=== PATIENT | male | born 1960 | race Caucasian/White ===

== ENCOUNTER 2024-04-29 16:12 | Inpatient (IN) | payer MEDICAID ==
[~2024-04-29] VITALS: Ht 167.6 cm; Wt 71.2 kg
[2024-04-29 17:29] LABS: HEMATOCRIT. 49.5 % (42.0-52.0); HEMOGLOBIN. 16.9 g/dL (14.0-18.0); MEAN CORPUSCULAR HEMOGLOBIN 29.7 pg (28.0-32.0); MEAN CORPUSCULAR HGB CONC 34.3 g/dL (31.0-37.0); MEAN CORPUSCULAR VOLUME 86.8 fL (80.0-94.0); MEAN PLATELET VOLUME 7.4 fl (7.4-10.4); PLATELET 350 x1000/uL (130-400); RED CELL DISTRIBUTION WIDTH 14.3 % (11.6-14.6); WHITE BLOOD COUNT 7.1 x1000/uL (4.5-11.0)
[2024-04-29 17:32] LABS: DIFFERENTIAL COMMENT 1
[2024-04-29 17:33] LABS: CHLORIDE 71 mEq/L (98-107); POTASSIUM 2.9 mEq/L (3.5-5.1); SODIUM 130 mEq/L (136-145)
[2024-04-29 17:34] LABS: CALCIUM 11.2 mg/dL (8.7-10.4)
[2024-04-29 17:39] LABS: CREATININE 2.5 mg/dL (0.6-1.3); GLUCOSE 170 mg/dL (70-105); UREA NITROGEN BLOOD 29 mg/dL (9-23)
[2024-04-29 17:41] LABS: ALANINE AMINOTRANSFERASE 15 IU/L (10-49); ALBUMIN 4.9 g/dL (3.2-4.8); ASPARTATE AMINOTRANSFERASE 25 IU/L (<34); BILIRUBIN DIRECT 0.3 mg/dL (<=3.0); PROTEIN TOTAL 7.9 g/dL (6.0-8.3)
[2024-04-29 17:44] LABS: CARBON DIOXIDE > 40 mEq/L (21-32)
[2024-04-29 17:45] LABS: ETHANOL BLOOD < 10 mg/dL (<10)
[2024-04-29 18:07] LABS: PLATELET ESTIMATE NORMAL
[2024-04-29] MEDS: KCL 20MEQ/100ML PREMIX 100 ML IV SCH (20:00)
[2024-04-29] MEDS ORDERED: MORPHINE SULFATE 4 MG/ML INJ (FOR IV/IM USE) IV ONE (20:00)
[2024-04-29] MEDS ORDERED: ONDANSETRON HCL 4MG/2ML INJ IV ONE (20:00)
[2024-04-29] MEDS ORDERED: DEXTROSE 50% WATER 50ML SYRINGE IV PRN (21:45)
[2024-04-29] MEDS ORDERED: GUAIFENESIN 200MG/10ML SUGAR FREE UDC PO PRN (21:45)
[2024-04-29 22:08] LABS: LACTIC ACID 3.9 mmol/L (0.4-2.0)
[2024-04-29 22:24] LABS: TROPONIN I HIGH SENSITIVITY 16 ng/L (3.0-53)
[2024-04-29 22:25] LABS: CREATINE KINASE 31 IU/L (46-171)
[2024-04-29] MEDS: SODIUM CHLORIDE 0.9% 1,000 ML IV ONE (22:44)
[2024-04-29] MEDS: PIPERACILLIN/TAZO 3.375G/50ML 50 ML IV SCH (22:49)
[2024-04-29] MEDS: MORPHINE SULFATE 4 MG/ML INJ (FOR IV/IM USE) IV NR (22:50)
[2024-04-29] MEDS: ONDANSETRON HCL 4MG/2ML INJ IV NR (22:50)
[2024-04-29] MEDS: IPRATROPIUM/ALBUTEROL 0.5-3(2.5)MG/3ML NEB HHN PRN (23:01)
[2024-04-29] MEDS: DEXT 5%/0.9% NACL 1,000 ML IV SCH (23:06)
[2024-04-30 00:31] VITALS: BP 102/70; PULSE 104; RESP 20; TEMP 36.696
[2024-04-30] MEDS: KCL 20MEQ/100ML PREMIX 100 ML IV SCH (01:30)
[2024-04-30 04:00] VITALS: BP 114/67; PULSE 101; RESP 20; TEMP 36.61404; O2SAT 95
[2024-04-30 06:42] LABS: CHLORIDE 80 mEq/L (98-107); SODIUM 132 mEq/L (136-145)
[2024-04-30 06:45] LABS: CALCIUM 9.8 mg/dL (8.7-10.4)
[2024-04-30 06:49] LABS: CREATININE 2.3 mg/dL (0.6-1.3); GLUCOSE 145 mg/dL (70-105); TRIGLYCERIDE 116 mg/dL (0-150)
[2024-04-30 06:50] LABS: LDL CHOLESTEROL 55 mg/dL (5-100); UREA NITROGEN BLOOD 36 mg/dL (9-23)
[2024-04-30 06:51] LABS: ALANINE AMINOTRANSFERASE 12 IU/L (10-49); ALBUMIN 3.9 g/dL (3.2-4.8); ASPARTATE AMINOTRANSFERASE 20 IU/L (<34); CHOLESTEROL 124 mg/dL (<200); CREATINE KINASE 25 IU/L (46-171); HDL CHOLESTEROL 52 mg/dL (>55); TROPONIN I HIGH SENSITIVITY 14 ng/L (3.0-53)
[2024-04-30 06:52] LABS: BILIRUBIN TOTAL 0.8 mg/dL (0.1-1.0); PROTEIN TOTAL 6.4 g/dL (6.0-8.3)
[2024-04-30 06:55] LABS: T4 FREE 1.34 ng/dL (0.89-1.76); THYROID STIMULATING HORMONE 0.59 uIU/mL (0.55-4.78)
[2024-04-30 07:05] LABS: HEMATOCRIT. 43.6 % (42.0-52.0); HEMOGLOBIN. 14.7 g/dL (14.0-18.0); MEAN CORPUSCULAR HEMOGLOBIN 29.6 pg (28.0-32.0); MEAN CORPUSCULAR HGB CONC 33.7 g/dL (31.0-37.0); MEAN CORPUSCULAR VOLUME 87.9 fL (80.0-94.0); MEAN PLATELET VOLUME 7.9 fl (7.4-10.4); PLATELET 291 x1000/uL (130-400); RED BLOOD CELL COUNT 4.97 mill/uL (4.7-6.1); RED CELL DISTRIBUTION WIDTH 14.3 % (11.6-14.6)
[2024-04-30 07:29] LABS: DIFFERENTIAL COMMENT 1
[2024-04-30] MEDS ORDERED: POTASSIUM CHLORIDE 40 MEQ in DEXT 5% WATER 230 ML IV ONE (07:45)
[2024-04-30 07:57] LABS: POTASSIUM 2.6 mEq/L (3.5-5.1)
[2024-04-30 07:58] LABS: CARBON DIOXIDE > 40 mEq/L (21-32)
[2024-04-30 08:00] VITALS: BP 107/60; PULSE 90; RESP 20; TEMP 36.33624; O2SAT 98
[2024-04-30] MEDS ORDERED: NALOXONE HCL 0.4MG/ML VIAL IV PRN (08:00)
[2024-04-30] MEDS: [UNRECOGNIZED DRUG - OTHER] IV SCH ×2 (10:02→12:57)
[2024-04-30] MEDS: PIPERACILLIN/TAZO 3.375G/50ML 50 ML IV SCH ×2 (10:03→14:00)
[2024-04-30] MEDS: PANTOPRAZOLE SODIUM 40 MG/VIAL IV SCH ×2 (10:04→21:08)
[2024-04-30 12:00] VITALS: BP 110/74; PULSE 98; RESP 20; TEMP 36.16956; O2SAT 99
[2024-04-30 12:31] LABS: PLATELET ESTIMATE NORMAL
[2024-04-30] MEDS: BLOOD SUGAR DIAGNOSTIC STRIP TEST SCH (12:40)
[2024-04-30] MEDS: INSULIN LISPRO 100 UNITS/ML SUBCUT SCH (13:15)
[2024-04-30 20:00] VITALS: BP 107/63; PULSE 83; RESP 20; TEMP 37.7808; O2SAT 97
[2024-04-30] MEDS: MORPHINE SULFATE 2 MG/ML INJ (NOT FOR IM USE) IV PRN (21:11)
[2024-04-30 21:24] LABS: POTASSIUM 3.2 mEq/L (3.5-5.1)
[2024-04-30] MEDS: MORPHINE SULFATE 2 MG/ML INJ (NOT FOR IM USE) IV NR (23:23)
[2024-05-01] VITALS: BP 124/63; PULSE 111; RESP 18; TEMP 38.3364; O2SAT 96
[2024-05-01 04:00] VITALS: BP 107/64; PULSE 108; RESP 18; TEMP 37.72524; O2SAT 98
[2024-05-01 07:05] LABS: CALCIUM 9.9 mg/dL (8.7-10.4); CHLORIDE 91 mEq/L (98-107); SODIUM 137 mEq/L (136-145)
[2024-05-01 07:06] LABS: CARBON DIOXIDE 39 mEq/L (21-32)
[2024-05-01 07:11] LABS: CREATININE 1.8 mg/dL (0.6-1.3); GLUCOSE 103 mg/dL (70-105); UREA NITROGEN BLOOD 39 mg/dL (9-23)
[2024-05-01 07:14] LABS: PHOSPHORUS 4.2 mg/dL (2.5-4.9)
[2024-05-01 08:00] VITALS: BP 103/62; PULSE 105; RESP 18; TEMP 37.2252; O2SAT 97
[2024-05-01] MEDS: KCL 20MEQ/100ML PREMIX 100 ML IV NR (09:18)
[2024-05-01] MEDS: KCL 20MEQ/100ML PREMIX 100 ML IV SCH (11:37)
[2024-05-01 12:00] VITALS: BP 101/61; PULSE 102; RESP 18; TEMP 36.78072; O2SAT 98
[2024-05-01 16:00] VITALS: BP 107/66; PULSE 101; RESP 18; TEMP 37.00296; O2SAT 99
[2024-05-01] MEDS: THIAMINE HCL 200 MG in SODIUM CHLORIDE 0.9% 98 ML IV SCH (18:10)
[2024-05-01 20:00] VITALS: BP 105/70; PULSE 111; RESP 20; TEMP 36.50292; O2SAT 97
[2024-05-02 00:27] VITALS: BP 125/72; PULSE 101; RESP 20; TEMP 36.72516; O2SAT 98
[2024-05-02 04:00] VITALS: BP 102/62; PULSE 97; RESP 20; TEMP 36.61404; O2SAT 97
[2024-05-02 07:08] LABS: CALCIUM 9.8 mg/dL (8.7-10.4)
[2024-05-02 07:13] LABS: CREATININE 1.9 mg/dL (0.6-1.3)
[2024-05-02 07:17] LABS: PHOSPHORUS 3.2 mg/dL (2.5-4.9)
[2024-05-02 08:00] VITALS: BP 132/85; PULSE 95; RESP 18; TEMP 37.00296; O2SAT 100
[2024-05-02] MEDS: ONDANSETRON HCL 4MG/2ML INJ IV PRN (08:45)
[2024-05-02 12:00] VITALS: BP 113/78; PULSE 107; RESP 20; TEMP 36.44736; O2SAT 98
[2024-05-02] MEDS: ENOXAPARIN 40MG/0.4ML SYR SUBCUT SCH (13:00)
[2024-05-02 16:00] VITALS: BP 130/92; PULSE 104; RESP 20; TEMP 37.16964; O2SAT 98
[2024-05-02 18:04] LABS: HEMATOCRIT. 49.9 % (42.0-52.0); HEMOGLOBIN. 16.1 g/dL (14.0-18.0); MEAN CORPUSCULAR HGB CONC 32.3 g/dL (31.0-37.0); MEAN CORPUSCULAR VOLUME 89.9 fL (80.0-94.0); MEAN PLATELET VOLUME 8.1 fl (7.4-10.4); PLATELET 367 x1000/uL (130-400); RED BLOOD CELL COUNT 5.55 mill/uL (4.7-6.1); RED CELL DISTRIBUTION WIDTH 14.9 % (11.6-14.6); WHITE BLOOD COUNT 13.9 x1000/uL (4.5-11.0)
[2024-05-02 18:05] LABS: DIFFERENTIAL COMMENT 1; POTASSIUM 3.3 mEq/L (3.5-5.1)
[2024-05-02 18:07] LABS: CALCIUM 10.6 mg/dL (8.7-10.4)
[2024-05-02 18:11] LABS: CREATININE 2.1 mg/dL (0.6-1.3)
[2024-05-02 18:18] LABS: PLATELET ESTIMATE NORMAL
[2024-05-02 20:00] VITALS: BP 138/91; PULSE 99; RESP 20; TEMP 36.28068; O2SAT 100
[2024-05-02] MEDS: POTASSIUM CHLORIDE 40 MEQ in DEXT 5% WATER 500 ML IV NR (21:00)
[2024-05-02] MEDS: DICLOFENAC SODIUM 1% GEL 50GM TOP SCH (23:29)
[2024-05-03] VITALS: BP 139/93; PULSE 98; RESP 20; TEMP 36.22512; O2SAT 96
[2024-05-03 04:00] VITALS: BP 134/95; PULSE 88; RESP 20; TEMP 36.50292; O2SAT 97
[2024-05-03 06:47] LABS: CALCIUM 10.2 mg/dL (8.7-10.4); CARBON DIOXIDE 36 mEq/L (21-32); CHLORIDE 90 mEq/L (98-107); POTASSIUM 3.7 mEq/L (3.5-5.1); SODIUM 135 mEq/L (136-145)
[2024-05-03 06:53] LABS: CREATININE 2.1 mg/dL (0.6-1.3); GLUCOSE 165 mg/dL (70-105); UREA NITROGEN BLOOD 56 mg/dL (9-23)
[2024-05-03 06:55] LABS: PHOSPHORUS 3.2 mg/dL (2.5-4.9)
[2024-05-03] MEDS ORDERED: POTASSIUM CHLORIDE 40 MEQ in DEXT 5% WATER 230 ML IV ONE (07:30)
[2024-05-03 08:28] VITALS: BP 136/92; PULSE 101; RESP 18; TEMP 35.94732; O2SAT 96
[2024-05-03] MEDS: KCL 20MEQ/100ML X 2 FOR TOTAL KCL 40MEQ/200ML IV SCH (10:11)
[2024-05-03 10:27] LABS: HEMATOCRIT. 45.6 % (42.0-52.0); HEMOGLOBIN. 15.1 g/dL (14.0-18.0); MEAN CORPUSCULAR HEMOGLOBIN 29.4 pg (28.0-32.0); MEAN CORPUSCULAR HGB CONC 33.1 g/dL (31.0-37.0); MEAN CORPUSCULAR VOLUME 88.8 fL (80.0-94.0); MEAN PLATELET VOLUME 8.4 fl (7.4-10.4); PLATELET 289 x1000/uL (130-400); RED BLOOD CELL COUNT 5.14 mill/uL (4.7-6.1); RED CELL DISTRIBUTION WIDTH 14.3 % (11.6-14.6); WHITE BLOOD COUNT 11.2 x1000/uL (4.5-11.0)
[2024-05-03 10:31] LABS: DIFFERENTIAL COMMENT 1
[2024-05-03] MEDS: METRONIDAZOLE 500 MG PREMIX 100 ML IV SCH (10:45)
[2024-05-03] MEDS: SODIUM CHLORIDE 0.9% 1,000 ML IV NR (10:46)
[2024-05-03 12:23] VITALS: BP 130/85; PULSE 106; RESP 18; TEMP 36.05844; O2SAT 95
[2024-05-03 16:31] VITALS: BP 122/83; PULSE 111; RESP 18; TEMP 37.05852; O2SAT 98
[2024-05-03 20:00] VITALS: BP 130/82; PULSE 122; RESP 20; TEMP 36.6696; O2SAT 96
[2024-05-03 23:13] LABS: PLATELET ESTIMATE NORMAL
[2024-05-04] VITALS (61 sets, daily range): BP systolic 43–118; BP diastolic 16–82; PULSE 82–148; RESP 12–34; TEMP 36.22512–37.00296; O2SAT 96–100
[2024-05-04] MEDS ORDERED: ONDANSETRON HCL 4MG/2ML INJ ONE (07:40)
[2024-05-04] MEDS ORDERED: SUCCINYLCHOLINE CHLORIDE 200MG/10ML IV ONE (07:40)
[2024-05-04] MEDS ORDERED: DEXAMETHASONE 4MG/ML 1ML VIAL ONE (07:40)
[2024-05-04] MEDS ORDERED: ETOMIDATE 2MG/ML 10ML VIAL IV ONE (07:40)
[2024-05-04] MEDS ORDERED: ROCURONIUM BROMIDE 10MG/ML VIAL 5ML IV ONE (07:41)
[2024-05-04] MEDS ORDERED: FENTANYL CITRATE/PF 50MCG/ML 2ML VIAL ONE (07:41)
[2024-05-04] MEDS ORDERED: MIDAZOLAM HCL 2 MG/2 ML VIAL ONE (07:41)
[2024-05-04] MEDS ORDERED: HYDROMORPHONE HCL/PF 1MG/ML INJ ONE (08:09)
[2024-05-04] MEDS ORDERED: ALBUMIN HUMAN 12.5G/250ML (5%) IV ONE (08:51)
[2024-05-04] MEDS ORDERED: SUGAMMADEX SODIUM 200MG/2ML VIAL IV ONE (09:15)
[2024-05-04] MEDS ORDERED: ONDANSETRON HCL 4MG/2ML INJ IV PRN (09:30)
[2024-05-04] MEDS ORDERED: MORPHINE SULFATE 2 MG/ML INJ (NOT FOR IM USE) IV PRN (09:30)
[2024-05-04] MEDS: MORPHINE SULFATE 4 MG/ML INJ (FOR IV/IM USE) IV PRN (10:18)
[2024-05-04] MEDS: HYDROMORPHONE HCL/PF 1MG/ML INJ IV PRN (11:01)
[2024-05-04] MEDS: DEXT 5%/0.45% NACL KCL 20MEQ/L 1,000 ML IV SCH (11:46)
[2024-05-04] MEDS: SODIUM CHLORIDE 0.9% 1,000 ML IV ONE ×3 (13:30→21:31)
[2024-05-04 14:26] LABS: HEMATOCRIT. 42.7 % (42.0-52.0); HEMOGLOBIN. 14.3 g/dL (14.0-18.0); MEAN CORPUSCULAR HEMOGLOBIN 29.8 pg (28.0-32.0); MEAN CORPUSCULAR HGB CONC 33.5 g/dL (31.0-37.0); RED BLOOD CELL COUNT 4.79 mill/uL (4.7-6.1); RED CELL DISTRIBUTION WIDTH 14.6 % (11.6-14.6); WHITE BLOOD COUNT 10.9 x1000/uL (4.5-11.0)
[2024-05-04 14:31] LABS: POTASSIUM 3.4 mEq/L (3.5-5.1)
[2024-05-04 14:33] LABS: CALCIUM 7.4 mg/dL (8.7-10.4)
[2024-05-04 14:34] LABS: DIFFERENTIAL COMMENT 1
[2024-05-04 14:37] LABS: CREATININE 2.2 mg/dL (0.6-1.3)
[2024-05-04 14:56] LABS: BG BASE EXCESS 0.1 mmol/L (-2.0-3.0); BG CARBOXYHEMOGLOBIN 1.4 % (0.5-1.5); BG DEOXYHEMOGLOBIN 3.5 % (0.0-5.0); BG FRACTION INSPIRED OXYGEN 32; BG HCO3 ACT 24.7 mmol/L (21.0-28.0); BG METHEMOGLOBIN 0.2 % (0.5-1.5); BG OXYGEN SATURATION 96.4 % (94.0-98.0); BG OXYHEMOGLOBIN 94.9 % (94.0-98.0); BG PCO2 39.8 mmHg (35.0-48.0); BG PO2 106.1 mmHg (83.0-108.0); BG SAMPLE SITE RIGHT RADIAL; BG TOTAL HEMOGLOBIN 13.9 g/dL (13.5-17.5); BG VENT MODE NASAL CANNULA
[2024-05-04] MEDS: PHENYLEPHRINE 50MG/250ML PMX 250 ML IV PRN (15:28)
[2024-05-04 15:45] LABS: PLATELET ESTIMATE NORMAL
[2024-05-04] MEDS ORDERED: POTASSIUM CHLORIDE 40 MEQ in DEXT 5% WATER 230 ML IV ONE (16:15)
[2024-05-04] MEDS: FAMOTIDINE 20MG/2ML VIAL IV SCH (16:39)
[2024-05-04] MEDS: KCL 20MEQ/100ML X 2 FOR TOTAL KCL 40MEQ/200ML IV SCH (16:50)
[2024-05-04] MEDS: DEXT 5%/0.9% NACL 1,000 ML IV SCH ×2 (16:52→19:00)
[2024-05-04] MEDS ORDERED: VASOPRESSIN 20 UNIT in SODIUM CHLORIDE 0.9% 99 ML IV PRN (18:00)
[2024-05-04] MEDS ORDERED: SODIUM CHLORIDE 0.9% 1,000 ML IV NR (20:45)
[2024-05-05] VITALS (99 sets, daily range): BP systolic 70–113; BP diastolic 34–81; PULSE 94–123; RESP 4–32; TEMP 36.33624–36.9474; O2SAT 92–100
[2024-05-05] MEDS: KCL 20MEQ/100ML X 2 FOR TOTAL KCL 40MEQ/200ML IV SCH (00:35)
[2024-05-05] MEDS: SODIUM CHLORIDE 0.9% 1,000 ML IV ONE (00:35)
[2024-05-05 05:39] LABS: HEMATOCRIT. 43.2 % (42.0-52.0); HEMOGLOBIN. 13.2 g/dL (14.0-18.0); MEAN CORPUSCULAR HEMOGLOBIN 28.5 pg (28.0-32.0); MEAN CORPUSCULAR HGB CONC 30.5 g/dL (31.0-37.0); MEAN CORPUSCULAR VOLUME 93.6 fL (80.0-94.0); MEAN PLATELET VOLUME 8.5 fl (7.4-10.4); PLATELET 310 x1000/uL (130-400); RED BLOOD CELL COUNT 4.62 mill/uL (4.7-6.1); RED CELL DISTRIBUTION WIDTH 15.7 % (11.6-14.6)
[2024-05-05 05:42] LABS: CHLORIDE 116 mEq/L (98-107); SODIUM 146 mEq/L (136-145)
[2024-05-05 05:43] LABS: CARBON DIOXIDE 20 mEq/L (21-32)
[2024-05-05 05:44] LABS: CALCIUM 6.5 mg/dL (8.7-10.4)
[2024-05-05 05:49] LABS: GLUCOSE 163 mg/dL (70-105); UREA NITROGEN BLOOD 42 mg/dL (9-23)
[2024-05-05 05:51] LABS: PHOSPHORUS 3.9 mg/dL (2.5-4.9)
[2024-05-05 05:58] LABS: CREATININE 3.1 mg/dL (0.6-1.3)
[2024-05-05 06:16] LABS: WHITE BLOOD COUNT 48.5 x1000/uL (4.5-11.0)
[2024-05-05 06:18] LABS: DIFFERENTIAL COMMENT 1
[2024-05-05 06:31] LABS: LACTIC ACID 4.1 mmol/L (0.4-2.0)
[2024-05-05] MEDS: PHENYLEPHRINE 100 MG in DEXT 5% WATER 240 ML IV PRN (07:04)
[2024-05-05] MEDS ORDERED: MAGNESIUM 2 G PREMIX 50 ML IV ONE (07:30)
[2024-05-05] MEDS: LIDOCAINE HCL 1% 10 MG/ML 10ML VIAL ONE (07:30)
[2024-05-05] MEDS: DEXT 5%/0.45% NACL 1000ML 1,000 ML IV SCH (07:56)
[2024-05-05] MEDS: ENOXAPARIN 30MG/0.3ML SYR SUBCUT SCH (09:38)
[2024-05-05] MEDS: MAGNESIUM 2 G PREMIX 50 ML IV NR (09:38)
[2024-05-05] MEDS: PIPERACILLIN/TAZO 3.375G/50ML 50 ML IV SCH (09:41)
[2024-05-05] MEDS: THIAMINE HCL 100 MG in SODIUM CHLORIDE 0.9% 49 ML IV SCH (15:16)
[2024-05-05 15:51] LABS: ANISOCYTOSIS 1+; PLATELET ESTIMATE NORMAL
[2024-05-05] MEDS: BLOOD SUGAR DIAGNOSTIC STRIP TEST SCH (17:01)
[2024-05-05] MEDS: IPRATROPIUM BROMIDE (0.02%) 0.5MG/2.5ML NEB HHN PRN (22:20)
[2024-05-06] VITALS (87 sets, daily range): BP systolic 81–137; BP diastolic 60–89; PULSE 92–110; RESP 5–37; TEMP 36.05844–36.9474; O2SAT 95–100
[2024-05-06] MEDS: IPRATROPIUM BROMIDE (0.02%) 0.5MG/2.5ML NEB HHN SCH (03:45)
[2024-05-06 05:21] LABS: CALCIUM 6.6 mg/dL (8.7-10.4); CARBON DIOXIDE 21 mEq/L (21-32); CHLORIDE 113 mEq/L (98-107); POTASSIUM 4.5 mEq/L (3.5-5.1)
[2024-05-06 05:21] LABS: HEMATOCRIT. 36.3 % (42.0-52.0); HEMOGLOBIN. 11.3 g/dL (14.0-18.0); MEAN CORPUSCULAR HGB CONC 31.1 g/dL (31.0-37.0); MEAN CORPUSCULAR VOLUME 93.1 fL (80.0-94.0); MEAN PLATELET VOLUME 8.3 fl (7.4-10.4); PLATELET 226 x1000/uL (130-400); RED CELL DISTRIBUTION WIDTH 16.1 % (11.6-14.6)
[2024-05-06 05:22] LABS: SODIUM 143 mEq/L (136-145)
[2024-05-06 05:26] LABS: CREATININE 3.5 mg/dL (0.6-1.3); GLUCOSE 125 mg/dL (70-105)
[2024-05-06 05:27] LABS: DIFFERENTIAL COMMENT 1; WHITE BLOOD COUNT 48.4 x1000/uL (4.5-11.0)
[2024-05-06 05:28] LABS: UREA NITROGEN BLOOD 50 mg/dL (9-23)
[2024-05-06 05:29] LABS: PHOSPHORUS 3.2 mg/dL (2.5-4.9)
[2024-05-06 08:20] LABS: PLATELET ESTIMATE NORMAL
[2024-05-07] VITALS (59 sets, daily range): BP systolic 102–131; BP diastolic 62–99; PULSE 81–99; RESP 8–32; TEMP 36.05844–37.05852; O2SAT 93–100
[2024-05-07 05:31] LABS: CARBON DIOXIDE 21 mEq/L (21-32); CHLORIDE 111 mEq/L (98-107); POTASSIUM 3.6 mEq/L (3.5-5.1); SODIUM 142 mEq/L (136-145)
[2024-05-07 05:32] LABS: CALCIUM 6.2 mg/dL (8.7-10.4)
[2024-05-07 05:36] LABS: CREATININE 3.3 mg/dL (0.6-1.3); GLUCOSE 101 mg/dL (70-105)
[2024-05-07 05:37] LABS: UREA NITROGEN BLOOD 59 mg/dL (9-23)
[2024-05-07 05:40] LABS: PHOSPHORUS 4.2 mg/dL (2.5-4.9)
[2024-05-07] MEDS: BLOOD SUGAR DIAGNOSTIC STRIP TEST SCH ×2 (08:00→18:03)
[2024-05-07] MEDS: INSULIN LISPRO 100 UNITS/ML SUBCUT SCH ×2 (08:00→18:00)
[2024-05-07] MEDS: KCL 20MEQ/100ML PREMIX 100 ML IV NR (09:08)
[2024-05-07] MEDS: CALCIUM GLUCONATE 1GM PREMIX 50 ML IV NR (09:34)
[2024-05-07] MEDS: MAGNESIUM 2 G PREMIX 50 ML IV NR (10:37)
[2024-05-07] MEDS ORDERED: LIDOCAINE HCL 1% 10 MG/ML 10ML VIAL ONE (13:45)
[2024-05-07 13:51] LABS: HEMATOCRIT. 31.4 % (42.0-52.0); HEMOGLOBIN. 10.1 g/dL (14.0-18.0); MEAN CORPUSCULAR HEMOGLOBIN 29.3 pg (28.0-32.0); MEAN CORPUSCULAR HGB CONC 32.1 g/dL (31.0-37.0); MEAN CORPUSCULAR VOLUME 91.3 fL (80.0-94.0); MEAN PLATELET VOLUME 8.6 fl (7.4-10.4); PLATELET 197 x1000/uL (130-400); RED BLOOD CELL COUNT 3.44 mill/uL (4.7-6.1); WHITE BLOOD COUNT 34.2 x1000/uL (4.5-11.0)
[2024-05-07 13:57] LABS: DIFFERENTIAL COMMENT 1
[2024-05-07 14:40] LABS: PLATELET ESTIMATE NORMAL
[2024-05-08] VITALS (12 sets, daily range): BP systolic 113–141; BP diastolic 70–83; PULSE 86–108; RESP 12–20; TEMP 35.89176–36.72516; O2SAT 95–100
[2024-05-08 08:58] LABS: CHLORIDE 109 mEq/L (98-107); SODIUM 142 mEq/L (136-145)
[2024-05-08 08:59] LABS: CARBON DIOXIDE 24 mEq/L (21-32)
[2024-05-08 09:02] LABS: HEMATOCRIT. 31.5 % (42.0-52.0); HEMOGLOBIN. 10.5 g/dL (14.0-18.0); MEAN CORPUSCULAR HEMOGLOBIN 29.4 pg (28.0-32.0); MEAN CORPUSCULAR HGB CONC 33.5 g/dL (31.0-37.0); MEAN PLATELET VOLUME 8.5 fl (7.4-10.4); PLATELET 183 x1000/uL (130-400); RED BLOOD CELL COUNT 3.58 mill/uL (4.7-6.1); RED CELL DISTRIBUTION WIDTH 15.2 % (11.6-14.6); WHITE BLOOD COUNT 18.4 x1000/uL (4.5-11.0)
[2024-05-08 09:04] LABS: CREATININE 2.7 mg/dL (0.6-1.3); DIFFERENTIAL COMMENT 1; GLUCOSE 99 mg/dL (70-105); UREA NITROGEN BLOOD 50 mg/dL (9-23)
[2024-05-08 09:07] LABS: PHOSPHORUS 3.1 mg/dL (2.5-4.9)
[2024-05-08] MEDS ORDERED: POTASSIUM CHLORIDE 40 MEQ in DEXT 5% WATER 230 ML IV ONE (09:15)
[2024-05-08] MEDS: KCL 20MEQ/100ML X 2 FOR TOTAL KCL 40MEQ/200ML IV SCH (10:42)
[2024-05-08] MEDS: ACETAMINOPHEN 650MG SUPP PR PRN (13:23)
[2024-05-08] MEDS ORDERED: HYDROMORPHONE HCL/PF 2MG/ML INJ IV PRN (17:00)
[2024-05-08 17:37] LABS: PLATELET ESTIMATE NORMAL
[2024-05-08] MEDS: TOTAL PARENTERAL NUTRITION 2,000 ML IV SCH (21:19)
[2024-05-09] VITALS (12 sets, daily range): BP systolic 121–139; BP diastolic 70–80; PULSE 75–101; RESP 17–20; TEMP 35.5584–36.61404; O2SAT 95–100
[2024-05-09 06:56] LABS: HEMATOCRIT. 30.8 % (42.0-52.0); HEMOGLOBIN. 10.2 g/dL (14.0-18.0); MEAN CORPUSCULAR HEMOGLOBIN 28.9 pg (28.0-32.0); MEAN CORPUSCULAR HGB CONC 33.1 g/dL (31.0-37.0); MEAN CORPUSCULAR VOLUME 87.4 fL (80.0-94.0); MEAN PLATELET VOLUME 8.4 fl (7.4-10.4); PLATELET 180 x1000/uL (130-400); RED BLOOD CELL COUNT 3.52 mill/uL (4.7-6.1); RED CELL DISTRIBUTION WIDTH 15.2 % (11.6-14.6); WHITE BLOOD COUNT 12.1 x1000/uL (4.5-11.0)
[2024-05-09 07:02] LABS: CALCIUM 7.4 mg/dL (8.7-10.4); CARBON DIOXIDE 24 mEq/L (21-32); CHLORIDE 111 mEq/L (98-107); POTASSIUM 3.2 mEq/L (3.5-5.1); SODIUM 144 mEq/L (136-145)
[2024-05-09 07:08] LABS: CREATININE 2.5 mg/dL (0.6-1.3); DIFFERENTIAL COMMENT 1; GLUCOSE 170 mg/dL (70-105); UREA NITROGEN BLOOD 46 mg/dL (9-23)
[2024-05-09 07:11] LABS: PHOSPHORUS 2.2 mg/dL (2.5-4.9)
[2024-05-09] MEDS: MAGNESIUM 2 G PREMIX 50 ML IV SCH (12:32)
[2024-05-09] MEDS: KCL 20MEQ/100ML PREMIX 100 ML IV SCH (13:15)
[2024-05-09 15:01] LABS: NUCLEATED RED BLOOD CELLS 2 /100 WBC; PLATELET ESTIMATE NORMAL
[2024-05-09] MEDS: TOTAL PARENTERAL NUTRITION 2,000 ML IV SCH (21:00)
[2024-05-10] VITALS (12 sets, daily range): BP systolic 125–152; BP diastolic 73–84; PULSE 74–93; RESP 17–20; TEMP 35.72508–37.28076; O2SAT 95–100
[2024-05-10 10:39] LABS: CHLORIDE 112 mEq/L (98-107); POTASSIUM 3.4 mEq/L (3.5-5.1); SODIUM 145 mEq/L (136-145)
[2024-05-10 10:40] LABS: CALCIUM 7.8 mg/dL (8.7-10.4); CARBON DIOXIDE 26 mEq/L (21-32)
[2024-05-10 10:45] LABS: CREATININE 1.9 mg/dL (0.6-1.3); GLUCOSE 166 mg/dL (70-105); UREA NITROGEN BLOOD 36 mg/dL (9-23)
[2024-05-10 10:47] LABS: ALANINE AMINOTRANSFERASE 24 IU/L (10-49); ALBUMIN 2.9 g/dL (3.2-4.8); ASPARTATE AMINOTRANSFERASE 28 IU/L (<34); PROTEIN TOTAL 5.5 g/dL (6.0-8.3)
[2024-05-10] MEDS: DIATR MEGLU/DIATRIZOATE SOLN 120ML ONE (14:24)
[2024-05-10] MEDS: PIPERACILLIN/TAZO 3.375G/50ML 50 ML IV SCH (16:14)
[2024-05-10] MEDS: KCL 20MEQ/100ML PREMIX 100 ML IV SCH (17:20)
[2024-05-10] MEDS ORDERED: NALOXONE HCL 0.4MG/ML VIAL IV PRN (17:45)
[2024-05-10] MEDS: MORPHINE SULFATE 2 MG/ML INJ (NOT FOR IM USE) IV PRN (19:23)
[2024-05-10] MEDS: FAT EMULSIONS 500 ML IV SCH (21:42)
[2024-05-10] MEDS: METHYLPREDNISOLONE SOD SUCC 40MG/ML (ACT-O-VIAL) IV SCH (21:42)
[2024-05-11] VITALS (8 sets, daily range): BP systolic 114–128; BP diastolic 72–84; PULSE 80–113; RESP 16–20; TEMP 35.78064–36.89184; O2SAT 95–100
[2024-05-11] MEDS: KETOROLAC 15MG/ML VIAL IV NR (00:26)
[2024-05-11] MEDS: IPRATROPIUM BROMIDE (0.02%) 0.5MG/2.5ML NEB HHN PRN (02:01)
[2024-05-11 07:31] LABS: CHLORIDE 110 mEq/L (98-107); POTASSIUM 3.9 mEq/L (3.5-5.1); SODIUM 141 mEq/L (136-145)
[2024-05-11 07:32] LABS: CALCIUM 7.8 mg/dL (8.7-10.4); CARBON DIOXIDE 22 mEq/L (21-32)
[2024-05-11 07:37] LABS: CREATININE 1.6 mg/dL (0.6-1.3); UREA NITROGEN BLOOD 35 mg/dL (9-23)
[2024-05-11 07:40] LABS: PHOSPHORUS 3.2 mg/dL (2.5-4.9)
[2024-05-11 08:20] LABS: GLUCOSE 360 mg/dL (70-105)
[2024-05-11 08:39] LABS: HEMATOCRIT. 32.2 % (42.0-52.0); HEMOGLOBIN. 10.7 g/dL (14.0-18.0); MEAN CORPUSCULAR HGB CONC 33.1 g/dL (31.0-37.0); MEAN CORPUSCULAR VOLUME 87.6 fL (80.0-94.0); PLATELET 282 x1000/uL (130-400); RED BLOOD CELL COUNT 3.67 mill/uL (4.7-6.1); RED CELL DISTRIBUTION WIDTH 14.7 % (11.6-14.6); WHITE BLOOD COUNT 38.9 x1000/uL (4.5-11.0)
[2024-05-11 08:54] LABS: DIFFERENTIAL COMMENT 1
[2024-05-12] VITALS: BP 121/80; PULSE 91; RESP 18; TEMP 37.11408; O2SAT 100
[2024-05-12] MEDS: KETOROLAC 15MG/ML VIAL IV NR (00:09)
[2024-05-12 04:00] VITALS: BP 130/73; PULSE 92; RESP 18; TEMP 36.50292; O2SAT 96
[2024-05-12 07:58] VITALS: BP 128/80; PULSE 91; RESP 18; TEMP 36.50292; O2SAT 98
[2024-05-12] MEDS: MORPHINE SULFATE 2 MG/ML INJ (NOT FOR IM USE) IV NR (11:19)
[2024-05-12 12:00] VITALS: BP 130/82; PULSE 90; RESP 18; TEMP 36.44736; O2SAT 98
[2024-05-12 12:34] LABS: HEMATOCRIT. 29.5 % (42.0-52.0); HEMOGLOBIN. 9.6 g/dL (14.0-18.0); MEAN CORPUSCULAR HEMOGLOBIN 28.8 pg (28.0-32.0); MEAN CORPUSCULAR HGB CONC 32.6 g/dL (31.0-37.0); MEAN CORPUSCULAR VOLUME 88.4 fL (80.0-94.0); MEAN PLATELET VOLUME 9.2 fl (7.4-10.4); PLATELET 402 x1000/uL (130-400); RED BLOOD CELL COUNT 3.33 mill/uL (4.7-6.1); RED CELL DISTRIBUTION WIDTH 15.5 % (11.6-14.6); WHITE BLOOD COUNT 30.3 x1000/uL (4.5-11.0)
[2024-05-12 12:36] LABS: DIFFERENTIAL COMMENT 1; POTASSIUM 4.4 mEq/L (3.5-5.1)
[2024-05-12 12:37] LABS: CALCIUM 8.1 mg/dL (8.7-10.4)
[2024-05-12 12:42] LABS: CREATININE 1.6 mg/dL (0.6-1.3)
[2024-05-12 15:54] LABS: PLATELET ESTIMATE INCREASED
[2024-05-12 16:00] VITALS: BP 132/85; PULSE 104; RESP 21; TEMP 36.78072; O2SAT 97
[2024-05-12 17:05] LABS: PLATELET ESTIMATE NORMAL
[2024-05-12 20:00] VITALS: BP 130/87; PULSE 107; RESP 18; TEMP 35.94732; O2SAT 97
[2024-05-13] VITALS (45 sets, daily range): BP systolic 48–141; BP diastolic 29–106; PULSE 98–134; RESP 17–62; TEMP 34.28052–37.503; O2SAT 95–100
[2024-05-13 08:14] LABS: HEMATOCRIT 28.8 % (42.0-52.0); HEMOGLOBIN 9.4 g/dL (14.0-18.0); MEAN CORPUSCULAR HEMOGLOBIN 28.8 pg (28.0-32.0); MEAN CORPUSCULAR HGB CONC 32.5 g/dL (31.0-37.0); MEAN CORPUSCULAR VOLUME 88.7 fL (80.0-94.0); PLATELET 420 x1000/uL (130-400); RED BLOOD CELL COUNT 3.25 mill/uL (4.7-6.1); RED CELL DISTRIBUTION WIDTH 15.6 % (11.6-14.6)
[2024-05-13 08:21] LABS: CHLORIDE 108 mEq/L (98-107); POTASSIUM 4.7 mEq/L (3.5-5.1); SODIUM 141 mEq/L (136-145)
[2024-05-13 08:22] LABS: CARBON DIOXIDE 24 mEq/L (21-32)
[2024-05-13 08:27] LABS: CREATININE 1.5 mg/dL (0.6-1.3); GLUCOSE 234 mg/dL (70-105); TRIGLYCERIDE 95 mg/dL (0-150); UREA NITROGEN BLOOD 41 mg/dL (9-23)
[2024-05-13 08:29] LABS: ALANINE AMINOTRANSFERASE 41 IU/L (10-49); ASPARTATE AMINOTRANSFERASE 41 IU/L (<34); CHOLESTEROL 95 mg/dL (<200); PHOSPHORUS 4.3 mg/dL (2.5-4.9)
[2024-05-13] MEDS: SODIUM CHLORIDE 0.9% 1,000 ML IV ONE ×2 (10:47→13:43)
[2024-05-13] MEDS: DEXT 5%/0.9% NACL 1,000 ML IV SCH (10:51)
[2024-05-13] MEDS: MAGNESIUM 2 G PREMIX 50 ML IV NR (12:40)
[2024-05-13] MEDS: HYDROMORPHONE HCL/PF 1MG/ML INJ IV PRN (15:53)
[2024-05-13 17:35] LABS: HEMATOCRIT 23.6 % (42.0-52.0); HEMOGLOBIN 7.3 g/dL (14.0-18.0); MEAN CORPUSCULAR HEMOGLOBIN 28.8 pg (28.0-32.0); MEAN CORPUSCULAR HGB CONC 31.1 g/dL (31.0-37.0); MEAN CORPUSCULAR VOLUME 92.6 fL (80.0-94.0); PLATELET 475 x1000/uL (130-400); RED BLOOD CELL COUNT 2.55 mill/uL (4.7-6.1); WHITE BLOOD COUNT 29.8 x1000/uL (4.5-11.0)
[2024-05-13] MEDS ORDERED: BISACODYL 5MG TABLET PO PRN (19:00)
[2024-05-13] MEDS ORDERED: MIDAZOLAM 100MG/100ML PMX 100 ML IV PRN (19:00)
[2024-05-13] MEDS ORDERED: PHENYLEPHRINE 50MG/250ML PMX 250 ML IV PRN (19:00)
[2024-05-13] MEDS ORDERED: HYDROMORPHONE HCL/PF 2MG/ML INJ IV PRN (19:15)
[2024-05-13] MEDS: PHENYLEPHRINE 50MG/250ML PMX 250 ML IV PRN (20:02)
[2024-05-13] MEDS: VASOPRESSIN 20 UNIT in SODIUM CHLORIDE 0.9% 99 ML IV PRN (20:03)
[2024-05-13 20:42] LABS: BG BASE EXCESS -11.8 mmol/L (-2.0-3.0); BG CARBOXYHEMOGLOBIN 1.1 % (0.5-1.5); BG FRACTION INSPIRED OXYGEN 100; BG HCO3 ACT 14.9 mmol/L (21.0-28.0); BG METHEMOGLOBIN 0.3 % (0.5-1.5); BG OXYHEMOGLOBIN 97.6 % (94.0-98.0); BG PCO2 37.7 mmHg (35.0-48.0); BG PH 7.214 (7.350-7.450); BG PO2 408.7 mmHg (83.0-108.0); BG SAMPLE SITE LEFT BRACHIAL; BG TOTAL HEMOGLOBIN 5.7 g/dL (13.5-17.5); BG VENT MODE VENT - AC
[2024-05-13] MEDS: SODIUM BICARBONATE 8.4% 50MEQ/50ML SYR IV NR (21:31)
[2024-05-13] MEDS: NOREPINEPHRINE 8MG/250ML PMX 250 ML IV PRN (22:00)
[2024-05-14] VITALS (131 sets, daily range): BP systolic 40–154; BP diastolic 16–118; PULSE 99–142; RESP 0–33; TEMP 34.50276–38.39196; O2SAT 90–100
[2024-05-14] MEDS ORDERED: IOHEXOL-300 100 ML BOTTLE ONE (00:17)
[2024-05-14] MEDS ORDERED: ROCURONIUM BROMIDE 10MG/ML VIAL 5ML IV ONE ×3 (00:21→01:33)
[2024-05-14] MEDS ORDERED: PROPOFOL 200MG/20ML VIAL IV ONE (00:21)
[2024-05-14] MEDS ORDERED: MIDAZOLAM HCL 2 MG/2 ML VIAL ONE (00:22)
[2024-05-14] MEDS ORDERED: FENTANYL CITRATE/PF 50MCG/ML 2ML VIAL ONE (00:31)
[2024-05-14] MEDS ORDERED: PHENYLEPHRINE HCL 10MG/ML 1ML IV ONE (00:59)
[2024-05-14] MEDS ORDERED: ONDANSETRON HCL 4MG/2ML INJ ONE (01:14)
[2024-05-14] MEDS ORDERED: SODIUM BICARBONATE 8.4% 50MEQ/50ML VIAL IV ONE (01:14)
[2024-05-14] MEDS: FENTANYL 2500MCG/250ML PMX 250 ML IV PRN (03:07)
[2024-05-14] MEDS: PROPOFOL 10MG/ML 100ML 100 ML IV PRN (03:07)
[2024-05-14 03:16] LABS: MEAN CORPUSCULAR HEMOGLOBIN 26.5 pg (28.0-32.0); MEAN CORPUSCULAR HGB CONC 29.1 g/dL (31.0-37.0); PLATELET 450 x1000/uL (130-400); RED BLOOD CELL COUNT 2.64 mill/uL (4.7-6.1); RED CELL DISTRIBUTION WIDTH 19.8 % (11.6-14.6); WHITE BLOOD COUNT 30.4 x1000/uL (4.5-11.0)
[2024-05-14 03:23] LABS: CHLORIDE 116 mEq/L (98-107); POTASSIUM 5.8 mEq/L (3.5-5.1); SODIUM 148 mEq/L (136-145)
[2024-05-14 03:24] LABS: CALCIUM 6.6 mg/dL (8.7-10.4); CARBON DIOXIDE 13 mEq/L (21-32)
[2024-05-14 03:29] LABS: GLUCOSE 175 mg/dL (70-105); TRIGLYCERIDE 83 mg/dL (0-150)
[2024-05-14 03:30] LABS: UREA NITROGEN BLOOD 67 mg/dL (9-23)
[2024-05-14 04:08] LABS: CLARITY URINE TURBID (CLEAR); COLOR URINE DARK YELLOW (YELLOW); GLUCOSE URINE NEGATIVE (NEGATIVE); KETONES URINE NEGATIVE (NEGATIVE); LEUKOCYTE ESTERASE URINE TRACE (NEGATIVE); NITRITE URINE NEGATIVE (NEGATIVE); OCCULT BLOOD URINE 3+ (NEGATIVE); PROTEIN URINE 2+ (NEGATIVE); SPECIFIC GRAVITY URINE 1.041 (1.005-1.030)
[2024-05-14 04:17] LABS: CREATININE 2.2 mg/dL (0.6-1.3)
[2024-05-14 04:19] LABS: PHOSPHORUS 8.1 mg/dL (2.5-4.9)
[2024-05-14] MEDS: NOREPINEPHRINE 32 MG in DEXT 5% WATER 218 ML IV PRN (04:31)
[2024-05-14] MEDS: PHENYLEPHRINE 100 MG in DEXT 5% WATER 240 ML IV PRN (04:32)
[2024-05-14] MEDS: EPINEPHRINE 10 MG in SODIUM CHLORIDE 0.9% 240 ML IV PRN (04:34)
[2024-05-14 04:54] LABS: WBC URINE 0-2 /hpf (0-2)
[2024-05-14 04:55] LABS: BACTERIA URINE TRACE; COARSE GRANULAR CASTS URINE 0-5 /lpf; SQUAMOUS EPITHELIAL CELL URINE 1+ /lpf (RARE/1+)
[2024-05-14 05:28] LABS: BG BASE EXCESS -24.7 mmol/L (-2.0-3.0); BG CARBOXYHEMOGLOBIN 1.9 % (0.5-1.5); BG DEOXYHEMOGLOBIN 6.1 % (0.0-5.0); BG FRACTION INSPIRED OXYGEN 40; BG HCO3 ACT 6.3 mmol/L (21.0-28.0); BG METHEMOGLOBIN 0.3 % (0.5-1.5); BG OXYGEN SATURATION 93.8 % (94.0-98.0); BG OXYHEMOGLOBIN 91.7 % (94.0-98.0); BG PCO2 31.3 mmHg (35.0-48.0); BG SAMPLE SITE RIGHT RADIAL; BG TOTAL HEMOGLOBIN 8.6 g/dL (13.5-17.5); BG VENT MODE VENT - AC
[2024-05-14] MEDS: SODIUM BICARBONATE 8.4% 50MEQ/50ML SYR IV NR ×4 (05:52→23:21)
[2024-05-14] MEDS: DOPAMINE 400MG/250ML PREMIX 250 ML IV PRN (05:52)
[2024-05-14] MEDS: SODIUM BICARBONATE 150 MEQ in DEXTROSE 5% WATER 850 ML IV SCH (06:12)
[2024-05-14] MEDS: LACTATED RINGERS 1,000 ML IV ONE (07:00)
[2024-05-14 08:36] LABS: BG BASE EXCESS -25.7 mmol/L (-2.0-3.0); BG CARBOXYHEMOGLOBIN 2.5 % (0.5-1.5); BG DEOXYHEMOGLOBIN 8.6 % (0.0-5.0); BG FRACTION INSPIRED OXYGEN 40; BG HCO3 ACT 6.3 mmol/L (21.0-28.0); BG METHEMOGLOBIN 0.3 % (0.5-1.5); BG OXYGEN SATURATION 91.2 % (94.0-98.0); BG OXYHEMOGLOBIN 88.6 % (94.0-98.0); BG PCO2 35.5 mmHg (35.0-48.0); BG PH 6.868 (7.350-7.450); BG SAMPLE SITE LEFT RADIAL; BG TOTAL HEMOGLOBIN 9.1 g/dL (13.5-17.5); BG VENT MODE VENT - AC
[2024-05-14 08:40] LABS: HEMOGLOBIN 8.6 g/dL (14.0-18.0); MEAN CORPUSCULAR HEMOGLOBIN 26.4 pg (28.0-32.0); MEAN CORPUSCULAR HGB CONC 26.2 g/dL (31.0-37.0); PLATELET 350 x1000/uL (130-400); RED BLOOD CELL COUNT 3.26 mill/uL (4.7-6.1); RED CELL DISTRIBUTION WIDTH 19.3 % (11.6-14.6); WHITE BLOOD COUNT 29.4 x1000/uL (4.5-11.0)
[2024-05-14] MEDS ORDERED: CALCIUM GLUCONATE 1,000 MG in DEXT 5% WATER 90 ML IV STA (08:58)
[2024-05-14] MEDS: CALCIUM GLUCONATE 1GM PREMIX 50 ML IV NR (09:04)
[2024-05-14 09:08] LABS: LACTIC ACID 21.2 mmol/L (0.4-2.0)
[2024-05-14] MEDS: DEXTROSE 50% WATER 50ML SYRINGE IV NR ×2 (09:23→23:21)
[2024-05-14] MEDS: SODIUM POLYSTYRENE SULFONATE 15 G/60 ML BOT PR NR (09:23)
[2024-05-14] MEDS: INSULIN REGULAR (HUMULIN R) 1000UNITS/10ML VIAL IV NR ×2 (09:23→23:21)
[2024-05-14] MEDS: PANTOPRAZOLE 80 MG in SODIUM CHLORIDE 0.9% 100 ML IV SCH (10:32)
[2024-05-14 12:25] LABS: HEMATOCRIT 22.6 % (42.0-52.0); MEAN CORPUSCULAR HEMOGLOBIN 26.8 pg (28.0-32.0); MEAN CORPUSCULAR HGB CONC 30.6 g/dL (31.0-37.0); MEAN CORPUSCULAR VOLUME 87.5 fL (80.0-94.0); PLATELET 291 x1000/uL (130-400); RED BLOOD CELL COUNT 2.59 mill/uL (4.7-6.1); RED CELL DISTRIBUTION WIDTH 18.7 % (11.6-14.6); WHITE BLOOD COUNT 25.2 x1000/uL (4.5-11.0)
[2024-05-14 12:29] LABS: HEMOGLOBIN 6.9 g/dL (14.0-18.0)
[2024-05-14 12:54] LABS: BG BASE EXCESS -19.6 mmol/L (-2.0-3.0); BG DEOXYHEMOGLOBIN 0.2 % (0.0-5.0); BG FRACTION INSPIRED OXYGEN 100; BG METHEMOGLOBIN 0.2 % (0.5-1.5); BG OXYGEN SATURATION 99.8 % (94.0-98.0); BG OXYHEMOGLOBIN 96.6 % (94.0-98.0); BG PCO2 31.6 mmHg (35.0-48.0); BG PO2 201.3 mmHg (83.0-108.0); BG SAMPLE SITE LEFT RADIAL; BG TOTAL HEMOGLOBIN 7.1 g/dL (13.5-17.5); BG TOTAL RESPIRATORY RATE 30 b/min; BG VENT MODE VENT - AC
[2024-05-14 17:11] LABS: BG CARBOXYHEMOGLOBIN 1.7 % (0.5-1.5); BG DEOXYHEMOGLOBIN 1.1 % (0.0-5.0); BG FRACTION INSPIRED OXYGEN 70; BG METHEMOGLOBIN 0.2 % (0.5-1.5); BG OXYGEN SATURATION 98.9 % (94.0-98.0); BG PCO2 30.6 mmHg (35.0-48.0); BG PH 7.247 (7.350-7.450); BG PO2 137.2 mmHg (83.0-108.0); BG SAMPLE SITE RIGHT RADIAL; BG TOTAL HEMOGLOBIN 9.5 g/dL (13.5-17.5); BG VENT MODE VENT - AC
[2024-05-14 21:01] LABS: CALCIUM 6.5 mg/dL (8.7-10.4)
[2024-05-14 21:14] LABS: CREATININE 2.9 mg/dL (0.6-1.3)
[2024-05-14 21:25] LABS: POTASSIUM 6.7 mEq/L (3.5-5.1)
[2024-05-14 21:51] LABS: BG BASE EXCESS -18.3 mmol/L (-2.0-3.0); BG CARBOXYHEMOGLOBIN 3.3 % (0.5-1.5); BG DEOXYHEMOGLOBIN 4.2 % (0.0-5.0); BG FRACTION INSPIRED OXYGEN 70; BG HCO3 ACT 9.9 mmol/L (21.0-28.0); BG METHEMOGLOBIN 0.2 % (0.5-1.5); BG OXYGEN SATURATION 95.6 % (94.0-98.0); BG OXYHEMOGLOBIN 92.3 % (94.0-98.0); BG PCO2 32.4 mmHg (35.0-48.0); BG PH 7.104 (7.350-7.450); BG PO2 96.1 mmHg (83.0-108.0); BG SAMPLE SITE RIGHT FEMORAL; BG TOTAL HEMOGLOBIN 8.3 g/dL (13.5-17.5); BG TOTAL RESPIRATORY RATE 30 b/min; BG VENT MODE VENT - AC
[2024-05-14] MEDS ORDERED: CALCIUM GLUCONATE 1,000 MG in DEXT 5% WATER 90 ML IV ONE (22:15)
[2024-05-14] MEDS: CALCIUM GLUCONATE 1GM PREMIX 50ML IV NR (23:19)
[2024-05-14] MEDS: HYDROCORTISONE SOD SUCCINATE 100 MG/2 ML VIAL IV SCH (23:23)
[2024-05-15] VITALS (7 sets, daily range): BP systolic 40–61; BP diastolic 28–40; PULSE 61–104; RESP 0–30; TEMP 36.22512–36.61404; O2SAT 99–100
[2024-05-15] MEDS: MORPHINE SULFATE 250 MG in DEXT 5% WATER 240 ML IV PRN (00:24)
[2024-05-15] MEDS ORDERED: ALBUTEROL (0.083%) 2.5MG/3ML NEB HHN SCH (23:00)
== END 2024-05-15 04:20 | DRG 710 ==
LOC: ER 16:12 → 7WST 04-30 00:03 → MICUNO 05-04 10:45 → 6EST 05-08 02:15 → CVICU 05-13 18:35
PROVIDERS: ADMIT Hospitalist; ATTEND Hospitalist
PROC: 0D9670Z Drainage of Stomach with Drainage Device, Via Natural or Artificial Opening (ICD-10-PCS; 2024-04-29)
PROC: 0DB80ZZ Excision of Small Intestine, Open Approach (ICD-10-PCS; 2024-05-04)
PROC: 0DBB0ZZ Excision of Ileum, Open Approach (ICD-10-PCS; 2024-05-04)
PROC: 02H633Z Insertion of Infusion Device into Right Atrium, Percutaneous Approach (ICD-10-PCS; 2024-05-05)
PROC: B548ZZA Ultrasonography of Superior Vena Cava, Guidance (ICD-10-PCS; 2024-05-05)
PROC: 0BH17EZ Insertion of Endotracheal Airway into Trachea, Via Natural or Artificial Opening (ICD-10-PCS; principal; 2024-05-13)
PROC: 5A1945Z Respiratory Ventilation, 24-96 Consecutive Hours (ICD-10-PCS; 2024-05-13)
PROC: 0DB80ZZ Excision of Small Intestine, Open Approach (ICD-10-PCS; 2024-05-14)
DX: A41.9 Sepsis, unspecified organism (principal); J96.01 Acute respiratory failure with hypoxia; K55.029 Acute infarction of small intestine, extent unspecified; K63.1 Perforation of intestine (nontraumatic); K65.1 Peritoneal abscess; N17.0 Acute kidney failure with tubular necrosis; R65.21 Severe sepsis with septic shock; R57.1 Hypovolemic shock; G93.40 Encephalopathy, unspecified; K56.50 Intestinal adhesions [bands], unspecified as to partial versus complete obstruction; K56.609 Unspecified intestinal obstruction, unspecified as to partial versus complete obstruction; E87.4 Mixed disorder of acid-base balance; E83.39 Other disorders of phosphorus metabolism; E83.41 Hypermagnesemia; E83.52 Hypercalcemia; E86.0 Dehydration; E87.1 Hypo-osmolality and hyponatremia; E87.6 Hypokalemia; K31.89 Other diseases of stomach and duodenum; K80.20 Calculus of gallbladder without cholecystitis without obstruction; E86.1 Hypovolemia; E11.65 Type 2 diabetes mellitus with hyperglycemia; K50.90 Crohn's disease, unspecified, without complications; N18.9 Chronic kidney disease, unspecified; E11.22 Type 2 diabetes mellitus with diabetic chronic kidney disease; D64.9 Anemia, unspecified; E87.5 Hyperkalemia; J98.11 Atelectasis; Z79.4 Long term (current) use of insulin; Z85.038 Personal history of other malignant neoplasm of large intestine; Z87.891 Personal history of nicotine dependence; E87.8 Other disorders of electrolyte and fluid balance, not elsewhere classified; K56.7 Ileus, unspecified; R58 Hemorrhage, not elsewhere classified; Z20.822 Contact with and (suspected) exposure to COVID-19; E86.9 Volume depletion, unspecified
CPT/HCPCS: 36415; 36573; 36600; 71045; 74018; 74021; 74176; 74178; 74250; 76770; 76857; 80048; 80053; 80061; 80076; 80320; 81003; 82040; 82375; 82465; 82550; 82805; 82962; 83036; 83605; 83735; 84075; 84100; 84132; 84145; 84439; 84443; 84450; 84460; 84478; 84484; 85025; 85027; 86850; 86900; 86920; 87070; 87075; 87077; 87186; 87426; 88307; 93005; 93970; 94003; 94640; 97116; 97162; 99291; C1725; C1769; J0330; J0610; J1100; J1170; J1265; J1650; J1720; J1815; J1885; J2250; J2270; J2405; J2470; J2543; J2704; J2920; J3010; J3411; J3475; J3480; J3490; J7030; J7042; J7050; J7060; J7070; J7120; P9016; P9041; Q9963; Q9967; G0480